=== PATIENT | female | born 1965 | race Caucasian/White ===

== ENCOUNTER → 2017-03-07 14:41 | Outpatient (CLI) | payer OTHER | END | disposition home or self-care (01) | LOC: D.CT 14:41 | DX: R10.31 Right lower quadrant pain (principal) ==

== ENCOUNTER 2017-07-06 09:28 | Emergency (ER) | payer OTHER ==
[2017-07-06 12:01] LABS: CALCIUM 9.6 mg/dL (8.5-10.1); MAGNESIUM - SERUM 2.2 mg/dL (1.8-2.4); T4 THYROXINE 8.2 ug/dL (4.7-13.3); THYROID STIMULATING HORMONE 1.38 uIU/mL (0.36-3.74)
== END 2017-07-06 12:15 | disposition home or self-care (01) ==
LOC: D.ER 09:28
PROVIDERS: Emergency Medicine
DX: E03.9 Hypothyroidism, unspecified (principal); F41.9 Anxiety disorder, unspecified; F32.9 Major depressive disorder, single episode, unspecified; Z85.3 Personal history of malignant neoplasm of breast

== ENCOUNTER → 2017-09-19 08:09 | Outpatient (CLI) | payer MEDICAID | END | disposition home or self-care (01) | LOC: D.MRI 08:00 | DX: E21.3 Hyperparathyroidism, unspecified (principal) ==

== ENCOUNTER → 2017-09-26 14:39 | Outpatient (CLI) | payer MEDICAID | END | disposition home or self-care (01) | LOC: D.MRI 14:39 | DX: M25.551 Pain in right hip (principal) ==

== ENCOUNTER 2017-11-15 08:00 | Outpatient (CLI) | payer MEDICAID | END 2017-11-15 23:59 | disposition home or self-care (01) | LOC: D.MAMMO 08:00 | DX: Z85.3 Personal history of malignant neoplasm of breast (principal) ==

== ENCOUNTER → 2018-09-01 15:11 | Outpatient (CLI) | payer MEDICAID ==
[2018-09-02 08:11] LABS: IMMUNOGLOBULIN A 243 mg/dL (87-352); IMMUNOGLOBULIN G 1001 mg/dL (700-1600); IMMUNOGLOBULIN M 216 mg/dL (26-217); RAPID PLASMA REAGIN Non Reactive (Non Reactive)
[2018-09-05 09:13] LABS: EBV DNA QUANT PCR Negative (Negative)
[2018-09-05 15:11] LABS: BRUCELLA IGG Negative (Negative); BRUCELLA IGM Negative (Negative)
[2018-09-05 17:08] LABS: RMSF IGM 0.93 index (0.00-0.89)
== END | disposition home or self-care (01) ==
LOC: D.LABREF 15:11
PROVIDERS: ATTEND Student in an Organized Health Care Education/Training Program
DX: R53.83 Other fatigue (principal)